=== PATIENT | male | born 1960 | race Caucasian/White ===

== ENCOUNTER 2017-11-02 00:50 | Emergency (ER) | payer MEDICAID ==
[2017-11-02] MEDS: SOD CHLORIDE 0.9% 1,000 ML IV ×2 (01:39)
[2017-11-02] MEDS: METHYLPREDNISOLONE 125 MG INJ IV (01:39)
[2017-11-02] MEDS: IPRATROPIUM (NEB) 0.5 MG/2.5 ML AMP INH (02:30)
[2017-11-02] MEDS: ALBUTEROL 0.5% (NEB) 2.5 MG/0.5 ML AMP INH (02:31)
[2017-11-02] MEDS: predniSONE 20 MG TAB PO (02:57)
== END 2017-11-02 03:53 | disposition home or self-care (01) ==
LOC: E/R 00:50
DX: J44.1 Chronic obstructive pulmonary disease with (acute) exacerbation (principal); I10 Essential (primary) hypertension; I25.10 Atherosclerotic heart disease of native coronary artery without angina pectoris; Z87.891 Personal history of nicotine dependence
CPT/HCPCS: 71045; 87400; 93005; 94644; 99284-25

== ENCOUNTER 2017-11-20 05:38 | Emergency (ER) | payer MEDICAID ==
[2017-11-20] MEDS: ALBUTEROL 0.5% (NEB) 2.5 MG/0.5 ML AMP INH (06:13)
[2017-11-20] MEDS: IPRATROPIUM (NEB) 0.5 MG/2.5 ML AMP INH (06:13)
[2017-11-20] MEDS: METHYLPREDNISOLONE 125 MG INJ IV (06:34)
[2017-11-20] MEDS: ALBUTEROL 0.5% (NEB) 2.5 MG/0.5 ML AMP NEB (07:21)
[2017-11-20] MEDS: IPRATROPIUM (NEB) 0.5 MG/2.5 ML AMP NEB (07:21)
[2017-11-20 08:27] LABS: ADD MAN DIFF? NO
[2017-11-20 08:38] LABS: WHITE BLOOD COUNT 9.1 10^3/ul (4.8-10.8)
[2017-11-20 08:38] LABS: BASOPHILS % 0.1 % (0.0-2.0); EOSINOPHILS % 0.3 % (0.0-7.0); HEMOGLOBIN 14.2 g/dl (14.0-18.0); LYMPHOCYTES # 1.7 10^3/ul (0.8-2.9); LYMPHOCYTES % 18.1 % (15.0-51.0); MEAN CORPUSCULAR HEMOGLOBIN 28.7 pg (29.0-33.0); MEAN CORPUSCULAR HGB CONC 32.3 g/dl (32.0-37.0); MEAN CORPUSCULAR VOLUME 89.1 fl (82.0-101.0); MEAN PLATELET VOLUME 9.9 fl (7.4-10.4); MONOCYTE # 0.4 10^3/ul (0.3-0.9); MONOCYTES % 4.8 % (0.0-11.0); NEUTROPHILS % 76.4 % (39.0-77.0); PLATELET COUNT 190 10^3/UL (140-415); RED BLOOD COUNT 4.94 10^6/ul (4.70-6.10); RED CELL DISTRIBUTION WIDTH 14.3 % (11.5-14.5)
[2017-11-20 09:02] LABS: INR 0.96; PROTIME 12.9 Sec (11.9-14.9)
[2017-11-20 09:06] LABS: ALANINE AMINOTRANSFERASE 61 IU/L (13-69); ALBUMIN/GLOBULIN RATIO 1.37; ALKALINE PHOSPHATASE 66 IU/L (42-121); ANION GAP 11 (8-16); ASPARTATE AMINO TRANSFERASE 32 IU/L (15-46); BILIRUBIN,INDIRECT 0.6 mg/dl (0-1.1); BILIRUBIN,TOTAL 0.6 mg/dl (0.2-1.3); BLOOD UREA NITROGEN 14 mg/dl (7-20); CARBON DIOXIDE 34 mmol/L (21-31); CHLORIDE 102 mmol/L (97-110); CREATINE KINASE 49 IU/L (23-200); CREATININE 0.77 mg/dl (0.61-1.24); GLUCOSE 133 mg/dl (70-220); POTASSIUM 4.7 mmol/L (3.5-5.1); SODIUM 142 mmol/L (135-144); TOTAL PROTEIN 6.9 g/dl (6.1-8.1)
[2017-11-20 09:18] LABS: B-TYPE NATRIURETIC PEPTIDE 2890 PG/ML (0-125); CK INDEX 3.4
[2017-11-20 09:22] LABS: CK-MB 1.67 ng/ml (0.0-2.4); TROPONIN-I < 0.012 ng/ml (0.00-0.12)
== END 2017-11-20 10:06 | disposition left against medical advice (07) ==
LOC: E/R 05:38
DX: J43.2 Centrilobular emphysema (principal)
CPT/HCPCS: 71045; 80053; 82550; 82553; 83880; 84484; 85025; 85610; 85730; 93005; 94644; 94645; 96374; 99285-25

== ENCOUNTER 2018-01-14 17:07 | Emergency (ER) | payer OTHER, MEDICAID ==
[2018-01-14] MEDS: predniSONE 20 MG TAB PO (19:34)
[2018-01-14] MEDS: ASPIRIN 81 MG TAB PO (19:34)
[2018-01-14] MEDS: FUROSEMIDE 40 MG INJ IV (19:34)
[2018-01-14] MEDS: IPRATROPIUM (NEB) 0.5 MG/2.5 ML AMP INH (19:38)
[2018-01-14] MEDS: ALBUTEROL 0.5% (NEB) 2.5 MG/0.5 ML AMP INH (19:38)
[2018-01-14 19:46] LABS: ADD MAN DIFF? NO
[2018-01-14 19:51] LABS: BASOPHILS % 0.3 % (0.0-2.0); EOSINOPHILS # 0.1 10^3/ul (0.0-0.5); EOSINOPHILS % 1.4 % (0.0-7.0); HEMATOCRIT 46.6 % (42.0-52.0); HEMOGLOBIN 15.2 g/dl (14.0-18.0); LYMPHOCYTES # 3.6 10^3/ul (0.8-2.9); LYMPHOCYTES % 41.6 % (15.0-51.0); MEAN CORPUSCULAR HEMOGLOBIN 28.7 pg (29.0-33.0); MEAN CORPUSCULAR HGB CONC 32.6 g/dl (32.0-37.0); MEAN CORPUSCULAR VOLUME 88.1 fl (82.0-101.0); MEAN PLATELET VOLUME 9.8 fl (7.4-10.4); MONOCYTE # 0.8 10^3/ul (0.3-0.9); MONOCYTES % 9.6 % (0.0-11.0); NEUTROPHIL # 4.1 10^3/ul (1.6-7.5); NEUTROPHILS % 46.6 % (39.0-77.0); PLATELET COUNT 200 10^3/UL (140-415); RED BLOOD COUNT 5.29 10^6/ul (4.70-6.10); RED CELL DISTRIBUTION WIDTH 14.1 % (11.5-14.5)
[2018-01-14 19:51] LABS: WHITE BLOOD COUNT 8.8 10^3/ul (4.8-10.8)
[2018-01-14 20:11] LABS: ALANINE AMINOTRANSFERASE 28 IU/L (13-69); ALBUMIN 4.1 g/dl (3.3-4.9); ALKALINE PHOSPHATASE 53 IU/L (42-121); ANION GAP 15 (8-16); ASPARTATE AMINO TRANSFERASE 22 IU/L (15-46); BLOOD UREA NITROGEN 20 mg/dl (7-20); CALCIUM 9.1 mg/dl (8.4-10.2); CARBON DIOXIDE 30 mmol/L (21-31); CHLORIDE 105 mmol/L (97-110); CREATININE 0.89 mg/dl (0.61-1.24); GLUCOSE 120 mg/dl (70-220); LIPASE 65 U/L (23-300); POTASSIUM 3.9 mmol/L (3.5-5.1); SODIUM 146 mmol/L (135-144); TOTAL PROTEIN 7.5 g/dl (6.1-8.1)
[2018-01-14 20:19] LABS: B-TYPE NATRIURETIC PEPTIDE 1080 PG/ML (0-125)
[2018-01-14 20:31] LABS: TROPONIN-I < 0.012 ng/ml (0.00-0.12)
== END 2018-01-14 22:10 | disposition home or self-care (01) ==
LOC: E/R 22:10
DX: J44.1 Chronic obstructive pulmonary disease with (acute) exacerbation (principal); I50.31 Acute diastolic (congestive) heart failure; I10 Essential (primary) hypertension; I25.10 Atherosclerotic heart disease of native coronary artery without angina pectoris; Z79.82 Long term (current) use of aspirin; Z98.61 Coronary angioplasty status
CPT/HCPCS: 36415; 71045; 80053; 83690; 83880; 84484; 85025; 93005; 94644; 96374; 99285-25

== ENCOUNTER 2018-07-04 09:42 | Emergency (ER) | payer OTHER ==
[2018-07-04] MEDS: DEXAMETHASONE 4 MG TAB PO (10:29)
[2018-07-04] MEDS: CEPHALEXIN 500 MG CAP PO (10:29)
== END 2018-07-04 10:44 | disposition home or self-care (01) ==
LOC: FTE 09:42
DX: H10.12 Acute atopic conjunctivitis, left eye (principal); I50.9 Heart failure, unspecified; J44.9 Chronic obstructive pulmonary disease, unspecified
CPT/HCPCS: 99283; Z7502

== ENCOUNTER → 2019-04-13 | Outpatient (CLI) | payer OTHER ==
[2019-04-13 10:14] LABS: AADO2 Arterial 16.9 mmHg (7.0-24.0); Allen Test ACCEPTAB; Arterial Blood Gas Oxygen Sat 92.6 mmHG (95.0-98.0); Arterial COHb 4.9 % (0.0-3.0); Arterial MetHb 0.1 % (0.0-1.5); Arterial pCO2 54.4 mmhg (35-45); MODE ROOM AIR; Site Right Radial
== END | disposition home or self-care (01) ==
LOC: PUL 09:19
DX: R06.02 Shortness of breath (principal)
CPT/HCPCS: 36600; 82803

== ENCOUNTER 2019-04-23 09:32 | Emergency (ER) | payer OTHER | END 2019-04-23 12:17 | disposition home or self-care (01) | LOC: FTE 09:32 | DX: L03.213 Periorbital cellulitis (principal); J44.9 Chronic obstructive pulmonary disease, unspecified; I50.9 Heart failure, unspecified | CPT/HCPCS: 99283; Z7502 ==